=== PATIENT | male | born 1965 | race Asian ===

== ENCOUNTER 2023-08-29 14:30 | Emergency (ER) | payer OTHER ==
[2023-08-29 15:23] VITALS: TEMP 98.6; BMI 25.0
[2023-08-29] MEDS ORDERED: ONDANSETRON 4 MG/2 ML VIAL IVPB ONE (15:47)
[2023-08-29] MEDS ORDERED: ACETAMINOPHEN 1000 MG/100 ML BAG IVPB ONE (15:47)
[2023-08-29] MEDS ORDERED: SODIUM CHLORIDE 1,000 ML IV ONE (15:47)
[2023-08-29 16:25] LABS: HEMATOCRIT 48.8 % (35.4-49); HEMOGLOBIN 16.8 G/dL (11.7-16.9); MCH 28.1 pg (25.7-33.7); MCHC 34.4 g/dl (32.0-35.9); MEAN CELL VOLUME 81.9 fl (80-96); RBC 5.96 10^6/uL (4.00-5.60); RDW 14.5 % (11.9-15.9); WHITE BLOOD COUNT 8.7 10^3/uL (4.0-10.8)
[2023-08-29] MEDS ORDERED: ACETAMINOPHEN INJECTION 100 ML IVPB ONE (16:32)
[2023-08-29] MEDS ORDERED: ONDANSETRON 4 MG/2 ML VIAL ONE (16:32)
[2023-08-29 16:33] LABS: ALBUMIN 4.2 g/dl (3.4-5.0); BILIRUBIN,TOTAL 1.9 mg/dl (0.2-1); CALCIUM 8.7 mg/dl (8.5-10.1); CREATININE 0.9 mg/dl (0.6-1.3); POTASSIUM 3.4 mmol/L (3.5-5.1); TOT PROT 7.2 g/dl (6.4-8.2)
[2023-08-29] MEDS ORDERED: CIPROFLOXACIN 400 MG/D5W 400 MG/200 ML IVPB IVPB ONE ×2 (16:57→17:08)
[2023-08-29 17:41] LABS: PLATELET ESTIMATE DECREASED
[2023-08-29 18:38] VITALS: BP 114/78; PULSE 109; RESP 16
[2023-08-29] MEDS ORDERED: METOPROLOL TARTRATE 25 MG TABLET (FP) PO ONE (19:52)
== END 2023-08-29 19:19 | disposition home or self-care (01) ==
LOC: FER 14:30
PROC: 3E03329 Introduction of Other Anti-infective into Peripheral Vein, Percutaneous Approach (ICD-10-PCS; principal; 2023-08-29)
PROC: 3E033NZ Introduction of Analgesics, Hypnotics, Sedatives into Peripheral Vein, Percutaneous Approach (ICD-10-PCS; 2023-08-29)
PROC: 3E033GC Introduction of Other Therapeutic Substance into Peripheral Vein, Percutaneous Approach (ICD-10-PCS; 2023-08-29)
PROC: 3E0337Z Introduction of Electrolytic and Water Balance Substance into Peripheral Vein, Percutaneous Approach (ICD-10-PCS; 2023-08-29)
DX: R10.30 Lower abdominal pain, unspecified (principal); R11.2 Nausea with vomiting, unspecified; R35.0 Frequency of micturition; R68.83 Chills (without fever); N30.90 Cystitis, unspecified without hematuria; Z20.822 Contact with and (suspected) exposure to COVID-19
CPT/HCPCS: 0241U-QW; 36415; 74176-TC; 80053; 81003; 81015; 85027; 87086; 87186; 99284-25; J0131

== ENCOUNTER 2023-08-30 08:54 | Emergency (ER) | payer OTHER ==
[2023-08-30 09:10] VITALS: BP 117/79; PULSE 81; RESP 16; TEMP 98.4; BMI 25.0
[2023-08-30] MEDS ORDERED: LIDOCAINE HCL 2% JELLY 10 ML CARTRIDGE UR ONE (09:12)
[2023-08-30 10:01] LABS: CALCIUM 8.3 mg/dl (8.5-10.1); CREATININE 0.9 mg/dl (0.6-1.3); POTASSIUM 3.8 mmol/L (3.5-5.1)
== END 2023-08-30 10:49 | disposition home or self-care (01) ==
LOC: FER 08:54
DX: R33.9 Retention of urine, unspecified (principal)
CPT/HCPCS: 36415; 80048; 99284-25